=== PATIENT | female | born 1985 | race African-American/Black ===

== ENCOUNTER 2025-05-28 13:22 | Emergency (ER) | payer OTHER ==
[~2025-05-28] VITALS: Ht 172.7 cm; Wt 115.0 kg
[2025-05-28 13:30] VITALS: O2SAT 98
[2025-05-28] MEDS: FAMOTIDINE 20MG TABLET PO ONE (15:00)
[2025-05-28] MEDS: IBUPROFEN 600MG TABLET PO ONE (15:31)
[2025-05-28] MEDS: DIPHENHYDRAMINE 25MG CAPSULE PO ONE (15:31)
[2025-05-28] MEDS: DEXAMETHASONE 10 MG/ML VIAL IM ONE (15:31)
[2025-05-28] MEDS ORDERED: P50 MT (16:18)
[2025-05-28] MEDS ORDERED: DIPH25CA83 MT (16:18)
[2025-05-28] MEDS ORDERED: EPIN0.3P3 IM (16:18)
[2025-05-28 16:33] VITALS: BP 180/99; PULSE 83; RESP 18; TEMP 36.8; O2SAT 99
== END 2025-05-28 16:38 | disposition home or self-care (01) ==
LOC: ER 13:46
DX: T78.3XXA Angioneurotic edema, initial encounter (principal); I10 Essential (primary) hypertension; R21 Rash and other nonspecific skin eruption
CPT/HCPCS: 99284; 96372; Q0163; J1100

== ENCOUNTER 2025-07-04 11:44 | Emergency (ER) | payer MEDICAID, OTHER ==
[~2025-07-04] VITALS: Ht 175.3 cm; Wt 122.0 kg
[~2025-07-04 11:44] MED LIST: DIPH25CA83 MT; EPIN0.3P3 IM; P50 MT
[2025-07-04 11:58] VITALS: O2SAT 99
[2025-07-04] MEDS ORDERED: MUPI15CR11 TP (12:14)
[2025-07-04 12:19] VITALS: BP 180/80; PULSE 80; RESP 15; TEMP 36.7; O2SAT 99
[2025-07-04] MEDS ORDERED: MUPI1OIN4 TP (12:25)
== END 2025-07-04 12:28 | disposition home or self-care (01) ==
LOC: ER 11:44
DX: S00.551A Superficial foreign body of lip, initial encounter (principal); L01.00 Impetigo, unspecified; X58.XXXA Exposure to other specified factors, initial encounter; Y93.89 Activity, other specified; Y92.89 Other specified places as the place of occurrence of the external cause; Y99.8 Other external cause status
CPT/HCPCS: 99283